=== PATIENT | male | born 1955 | race Caucasian/White ===

== ENCOUNTER 2016-10-25 22:36 | Emergency (ER) | payer BC ==
[2016-10-26 00:16] LABS: PH,URINE 5.5 PH (5.0-7.5)
[2016-10-26 00:27] LABS: BILIRUBIN,URINE NEGATIVE (NEGATIVE); UA w/ MICROSCOPIC CHARGE YES; UR CULTURE IF IND NOT INDICATED; WBC,URINE 0-3 /HPF (0-3)
[2016-10-26] MEDS ORDERED: ONDANSETRON ODT 4 MG TABLET TL STA (00:34)
[2016-10-26] MEDS ORDERED: ONDANSETRON ODT 4 MG TABLET ONE (00:39)
[2016-10-26] MEDS ORDERED: SODIUM CHLORIDE 0.9% 1,000 ML IV ONE (00:44)
[2016-10-26] MEDS ORDERED: SULFAMETH/TRIMETH DS 800/160 MG TABLET PO STA (00:47)
[2016-10-26 00:53] LABS: BASOPHILS # (AUTO) 0.1 10^3/uL (0.0-0.1); BASOPHILS % (AUTO) 0.6 %; HCT - HEMATOCRIT 44.5 % (42.0-52.0); HGB - HEMOGLOBIN 15.1 g/dL (14.0-18.0); LYMPHOCYTES # (AUTO) 0.9 10^3/uL (1.5-3.5); LYMPHOCYTES % (AUTO) 7.6 %; MEAN CORPUSCULAR HEMOGLOBIN 29.7 pg (27.0-31.0); MEAN CORPUSCULAR HGB CONC 33.9 g/dL (32.0-36.0); MEAN CORPUSCULAR VOLUME 87.8 fL (80.0-94.0); MEAN PLATELET VOLUME 8.7 fL (7.4-11.4); MONOCYTES # (AUTO) 0.4 10^3/uL (0.0-1.0); MONOCYTES % (AUTO) 3.4 %; NEUTROPHILS # (AUTO) 10.9 10^3/uL (1.5-6.6); NEUTROPHILS % (AUTO) 88.4 %; RED BLOOD COUNT 5.08 10^6/uL (4.70-6.10); RED CELL DISTRIBUTION WIDTH 13.3 % (12.0-15.0); UNCORRECTED WHITE BLOOD COUNT 12.3 x10^3/uL; WHITE BLOOD COUNT 12.3 x10^3/uL (4.8-10.8)
[2016-10-26] MEDS ORDERED: SULFAMETH/TRIMETH DS 800/160 MG TABLET PO ONE (01:06)
[2016-10-26 01:07] LABS: ALBUMIN/GLOBULIN RATIO 1.6 (1.0-2.2); BILIRUBIN,TOTAL 0.9 mg/dL (0.2-1.0); CALCIUM 9.5 mg/dL (8.5-10.3); CREATININE 1.2 mg/dL (0.6-1.2); TOTAL PROTEIN 7.7 g/dL (6.7-8.2)
[2016-10-26] MEDS ORDERED: ONDANSETRON 4 MG/2 ML VIAL IVP STA (01:08)
[2016-10-26] MEDS ORDERED: ONDANSETRON 4 MG/2 ML VIAL ONE (01:10)
[2016-10-26] MEDS ORDERED: ONDANSETRON ODT 4 MG Prepack 2 TL PRN (01:51)
[2016-10-26] MEDS ORDERED: levoFLOXacin 250 MG TABLET PO STA (01:51)
[2016-10-26] MEDS ORDERED: KETOROLAC 60 MG/2 ML VIAL IVP STA (01:51)
--- NOTE | 2016-10-26 01:52 | ED Physician Documentation ---
PD HPI MALE - Stated complaint Stated Complaint: NAUSE/BACK PX - Chief complaint Chief Complaint: Abd Pain - History obtained from History obtained from: Patient, Family - History of Present Illness Timing - onset: Yesterday Timing - details: Gradual onset, Still present Associated symptoms: Urinary frequency. No: Discharge PD HPI MALE CONTRIB FACTORS: Sexually active Similar symptoms before: Work up / diagnostics, Treatment, Follow up Recently seen: Not recently seen - Additional information Additional information: Patient is a 61 year old male with a history of recurrent prostatitis who is presenting to the emergency department for low back pain, prostate pain and nausea. Patient states that this is similar to his prior episodes. Patient is visit from out of the area so he came to the emergency department for evaluation. Review of Systems Constitutional: reports: Chills, Myalgias. denies: Fever Eyes: denies: Decreased vision, Photophobia Ears: denies: Ear pain, Drainage/discharge Nose: denies: Congestion Throat: denies: Sore throat Cardiac: denies: Chest pain / pressure, Palpitations Respiratory: denies: Cough GI: reports: Abdominal Pain, Nausea. denies: Vomiting, Constipation, Diarrhea : reports: Frequency Skin: denies: Rash Musculoskeletal: reports: Back pain Neurologic: denies: Generalized weakness, Focal weakness, Numbness Immunocompromised: denies: Immunocompromised PD PAST MEDICAL HISTORY - Present Medications Home Medications: Ambulatory Orders Medication Instructions Recorded Confirmed Levofloxacin [Levaquin] 750 mg PO DAILY #7 tablet 10/26/16 Ondansetron Odt [Zofran] 4 mg TL Q6H PRN #10 tablet 10/26/16 - Allergies Allergies/Adverse Reactions: Allergies Allergy/AdvReac Type Severity Reaction Status Date / Time No Known Drug Allergies Allergy Verified 10/25/16 22:45 PD ED PE NORMAL - Vitals Vital signs reviewed: Yes - General General: Alert and oriented X 3 - HEENT HEENT: Atraumatic, PERRL, Moist mucous membranes, Pharynx benign - Neck Neck: Supple, no meningeal sign, No JVD - Cardiac Cardiac: RRR, No murmur - Respiratory Respiratory: No respiratory distress - Abdomen Abdomen: Soft, Non tender, Non distended - Male Male : Deferred - Rectal Rectal: Deferred - Derm Derm: Normal color, Warm and dry, No rash - Extremities Extremities: No deformity - Neuro Neuro: Alert and oriented X 3, No motor deficit, No sensory deficit, Normal speech - Psych Psych: Normal mood, Normal affect Results - Vitals Vitals: Vital Signs - 24 hr 10/25/16 10/26/16 22:44 02:05 Temperature 36.8 C Heart Rate 68 66 Respiratory 18 18 Rate Blood Pressure 172/96 H 139/80 H O2 Saturation 100 98 Oxygen O2 Source Room air - Labs Labs: Laboratory Tests 10/26/16 10/26/16 10/26/16 00:10 00:45 00:45 WBC 12.3 H RBC 5.08 Hgb 15.1 Hct 44.5 MCV 87.8 MCH 29.7 MCHC 33.9 RDW 13.3 Plt Count 176 MPV 8.7 Neut # 10.9 H Lymph # 0.9 L Tyrrell # 0.4 Eos # 0.0 Baso # 0.1 Absolute Nucleated RBC 0.00 Nucleated RBCs 0.0 Sodium 140 Potassium 4.0 Chloride 104 Carbon Dioxide 26 Anion Gap 10.0 BUN 20 Creatinine 1.2 Estimated GFR (MDRD) 62 L Glucose 173 H Calcium 9.5 Total Bilirubin 0.9 AST 22 ALT 25 Alkaline Phosphatase 67 Total Protein 7.7 Albumin 4.7 Globulin 3.0 Albumin/Globulin Ratio 1.6 Lipase 16 L Urine Color YELLOW Urine Clarity CLEAR Urine pH 5.5 Ur Specific [place] >=1.030 H Urine Protein TRACE Urine Glucose (UA) NEGATIVE Urine Ketones >=80 H Urine Occult Blood SMALL H Urine Nitrite NEGATIVE Urine Bilirubin NEGATIVE Urine Urobilinogen 0.2 (NORMAL) Ur Leukocyte Esterase NEGATIVE Urine RBC 0-5 Urine WBC 0-3 Ur Squamous Epith Cells FEW Squamous Urine Bacteria None Seen Ur Microscopic Review INDICATED Urine Culture Comments NOT INDICATED PD MEDICAL DECISION MAKING - ED course Complexity details: reviewed results, re-evaluated patient, considered differential, d/w patient, d/w family ED course: Patient was seen and examined at bedside. Urine was collected. IV access was gained and labs were drawn. Patient was treated with ns bolus and bactrim. When patient's diagnostics came back they were fairly unremarkable. After being treated with bactim patient stated that it hadn't worked for him in the past. Patient was started on levaquin. Patient had no episodes of emesis while in the emergency department. patient was stable for discharge with outpatient follow up. Departure - Departure Disposition: 01 Home, Self Care Clinical Impression: Prostatitis, chronic Condition: Stable Instructions: ED Prostatitis Follow-Up: primary,care provider [Other] - Within 3 Days Prescriptions: Levofloxacin [Levaquin] 750 mg PO DAILY #7 tablet Ondansetron Odt [Zofran] 4 mg TL Q6H PRN #10 tablet PRN Reason: Nausea / Vomiting Comments: Your symptoms today are likely being caused by your prostatis. You started your antibiotics tonight but will need to continue until you are able to follow up with your pmd back home. You should take your entire course of antibiotics. You can take motrin or tylenol as needed for pain. You should try to stay well hydrated. You may return to the emergency department at any time for new, worsening or uncontrollable symptoms. Discharge Date/Time: 10/26/16 02:10
[2016-10-26] MEDS ORDERED: KETOROLAC 15 MG/ML VIAL ONE (02:02)
[2016-10-26] MEDS ORDERED: levoFLOXacin 250 MG TABLET ONE (02:03)
[2016-10-26] MEDS ORDERED: ONDANSETRON ODT 4 MG Prepack 2 TL ONE (02:03)
[2016-10-26 02:15] VITALS: BP 139/80
== END 2016-10-26 02:10 | disposition home or self-care (01) ==
LOC: ED 22:36
DX: N41.9 Inflammatory disease of prostate, unspecified (principal)
CPT/HCPCS: 36415; 80053; 81001; 83690; 85025; 96374; 96375; 99283; 99284; A9270; Q0162; 81003; 87086